=== PATIENT | female | born 1970 | race African-American/Black ===

== ENCOUNTER 2017-03-29 08:17 | Emergency (ER) | payer OTHER, MEDICAID ==
[~2017-03-29] VITALS: Ht 165.1 cm; Wt 132.0 kg
[~2017-03-29 08:17] MED LIST: ALBU18HF2 IH; AMLO10TA80 PO; LOVA40TA73 PO; TRAM50TA3 PO
[2017-03-29] MEDS ORDERED: SODIUM CHLORIDE 0.9% 1,000 ML IV ONE (08:29)
[2017-03-29 09:08] LABS: EOSINOPHILS % 4.2 % (0.0-5.0); HEMATOCRIT. 34.4 % (36.0-48.0); HEMOGLOBIN. 11.1 g/dL (12.0-16.0); LYMPHOCYTES % 16.1 % (20.0-50.0); MEAN CORPUSCULAR VOLUME 86.9 fL (81.0-99.0); MEAN PLATELET VOLUME 9.3 fl (7.4-10.4); MONOCYTES % 7.7 % (2.0-8.0); PLATELET 125 x1000/uL (130-400); RED BLOOD CELL COUNT 3.95 mill/uL (4.2-5.4); RED CELL DISTRIBUTION WIDTH 16.3 % (11.6-14.6)
[2017-03-29 09:16] LABS: PARTIAL THROMBOPLASTIN TIME 24.4 sec (23.4-31.0); PROTHROMBIN TIME 10.2 sec (9.4-11.6)
[2017-03-29 09:24] LABS: B-HCG QUANTITATIVE < 1 mIU/mL (<3); CARBON DIOXIDE 27 mEq/L (21-32); CHLORIDE 106 mEq/L (98-107)
[2017-03-29 11:29] LABS: CLARITY URINE CLEAR (CLEAR); COLOR URINE YELLOW (YELLOW); GLUCOSE URINE NEGATIVE (NEGATIVE); KETONES URINE NEGATIVE (NEGATIVE); LEUKOCYTE ESTERASE URINE NEGATIVE (NEGATIVE); NITRITE URINE NEGATIVE (NEGATIVE); OCCULT BLOOD URINE 2+ (NEGATIVE); PROTEIN URINE NEGATIVE (NEGATIVE); SPECIFIC GRAVITY URINE 1.011 (1.005-1.030); UROBILINOGEN URINE 0.2 E.U./dL (0.2-1.0)
[2017-03-29 12:04] LABS: *AMPHETAMINES SCREEN URINE NEGATIVE (NEGATIVE); *BARBITURATES SCREEN URINE NEGATIVE (NEGATIVE); *BENZODIAZEPINES SCREEN URINE NEGATIVE (NEGATIVE); CANNABINOID URINE SCREEN NEGATIVE (NEGATIVE); METHADONE URINE SCREEN NEGATIVE (NEGATIVE); OPIATES URINE SCREEN NEGATIVE (NEGATIVE); PHENCYCLIDINE URINE SCREEN NEGATIVE (NEGATIVE)
[2017-03-29 12:08] LABS: *COCAINE SCREEN URINE PRESUMTIVE POSITIVE (NEGATIVE)
[2017-03-29 13:24] VITALS: BP 129/81
== END 2017-03-29 13:25 | disposition home or self-care (01) ==
LOC: ER 08:40
DX: D25.9 Leiomyoma of uterus, unspecified (principal); L02.02 Furuncle of face; D64.9 Anemia, unspecified; F14.10 Cocaine abuse, uncomplicated; E87.8 Other disorders of electrolyte and fluid balance, not elsewhere classified
CPT/HCPCS: 36415; 76830; 76856; 80048; 80305; 81001; 84702; 85025; 85610; 85730; 86850; 86900; 86901; 96360; 96361; 99285; J7030

== ENCOUNTER 2018-08-24 06:50 | Emergency (ER) | payer MEDICAID, OTHER ==
[~2018-08-24] VITALS: Ht 175.3 cm; Wt 136.0 kg
[2018-08-24 06:57] VITALS: BP 137/70
== END 2018-08-24 11:35 | disposition left against medical advice (07) ==
LOC: ER 06:50
DX: M79.605 Pain in left leg (principal); M79.604 Pain in right leg; R06.02 Shortness of breath; Z53.21 Procedure and treatment not carried out due to patient leaving prior to being seen by health care provider

== ENCOUNTER 2018-09-30 20:01 | Emergency (ER) | payer OTHER ==
[~2018-09-30] VITALS: Ht 180.3 cm; Wt 135.0 kg
[2018-09-30 20:56] LABS: CLARITY URINE CLOUDY (CLEAR); COLOR URINE YELLOW (YELLOW); KETONES URINE NEGATIVE (NEGATIVE); LEUKOCYTE ESTERASE URINE NEGATIVE (NEGATIVE); NITRITE URINE NEGATIVE (NEGATIVE); OCCULT BLOOD URINE NEGATIVE (NEGATIVE); PROTEIN URINE NEGATIVE (NEGATIVE); SPECIFIC GRAVITY URINE 1.002 (1.005-1.030); UROBILINOGEN URINE 0.2 E.U./dL (0.2-1.0)
[2018-09-30 22:56] LABS: CHLORIDE 107 mEq/L (98-107)
[2018-09-30 23:00] LABS: BASOPHILS % 1.6 % (0.0-2.0); EOSINOPHILS % 3.7 % (0.0-5.0); HEMATOCRIT. 34.2 % (36.0-48.0); HEMOGLOBIN. 10.6 g/dL (12.0-16.0); LYMPHOCYTES % 20.6 % (20.0-50.0); MEAN CORPUSCULAR HEMOGLOBIN 26.1 pg (28.0-32.0); MEAN CORPUSCULAR VOLUME 84.2 fL (81.0-99.0); MEAN PLATELET VOLUME 11.6 fl (7.4-10.4); NEUTROPHILS % 67.1 % (40.0-76.0); PLATELET 151 x1000/uL (130-400); RED BLOOD CELL COUNT 4.07 mill/uL (4.2-5.4); RED CELL DISTRIBUTION WIDTH 16.8 % (11.6-14.6)
[2018-10-01 00:21] VITALS: BP 143/86
== END 2018-10-01 00:34 | disposition home or self-care (01) ==
LOC: ER 20:01
DX: D64.9 Anemia, unspecified (principal); E87.6 Hypokalemia; R07.89 Other chest pain; R06.2 Wheezing; E78.00 Pure hypercholesterolemia, unspecified; I10 Essential (primary) hypertension; J44.9 Chronic obstructive pulmonary disease, unspecified; E66.9 Obesity, unspecified; Z68.41 Body mass index [BMI] 40.0-44.9, adult; Z79.899 Other long term (current) drug therapy
CPT/HCPCS: 36415; 71045; 81025; 83880; 84484; 93005; 99284

== ENCOUNTER 2022-02-13 18:30 | Emergency (ER) | payer OTHER, MEDICAID ==
[~2022-02-13] VITALS: Ht 167.6 cm; Wt 120.0 kg
[2022-02-13 23:33] LABS: CHLORIDE 102 mEq/L (98-107)
[2022-02-13 23:36] LABS: HEMATOCRIT. 45.7 % (36.0-48.0); HEMOGLOBIN. 14.5 g/dL (12.0-16.0); LYMPHOCYTES % 17.1 % (20.0-50.0); MEAN CORPUSCULAR HEMOGLOBIN 27.5 pg (28.0-32.0); MEAN CORPUSCULAR VOLUME 86.4 fL (81.0-99.0); MEAN PLATELET VOLUME 12.3 fl (7.4-10.4); MONOCYTES % 5.7 % (2.0-8.0); NEUTROPHILS % 73.2 % (40.0-76.0); PLATELET 91 x1000/uL (130-400); RED BLOOD CELL COUNT 5.29 mill/uL (4.2-5.4); RED CELL DISTRIBUTION WIDTH 15.6 % (11.6-14.6)
[2022-02-13 23:45] LABS: ETHANOL BLOOD < 10 mg/dL
[2022-02-14 00:32] LABS: *AMPHETAMINES SCREEN URINE NEGATIVE (NEGATIVE); *BARBITURATES SCREEN URINE NEGATIVE (NEGATIVE); *BENZODIAZEPINES SCREEN URINE NEGATIVE (NEGATIVE); *COCAINE SCREEN URINE PRESUMTIVE POSITIVE (NEGATIVE); CANNABINOID URINE SCREEN NEGATIVE (NEGATIVE); METHADONE URINE SCREEN NEGATIVE (NEGATIVE); OPIATES URINE SCREEN NEGATIVE (NEGATIVE); PHENCYCLIDINE URINE SCREEN NEGATIVE (NEGATIVE)
[2022-02-14] MEDS ORDERED: HYDR-4001 MT (04:19)
[2022-02-14] MEDS ORDERED: FURO-151 MT (04:19)
[2022-02-14 04:40] VITALS: BP 136/76
== END 2022-02-14 04:50 | disposition home or self-care (01) ==
LOC: ER 18:30
DX: R60.0 Localized edema (principal); D64.9 Anemia, unspecified; J44.9 Chronic obstructive pulmonary disease, unspecified; E78.00 Pure hypercholesterolemia, unspecified; I10 Essential (primary) hypertension; F14.10 Cocaine abuse, uncomplicated; Z20.822 Contact with and (suspected) exposure to COVID-19
CPT/HCPCS: 36415; 71045; 80053; 80305; 80320; 83605; 83880; 84484; 85025; 85379; 87426; 93005; 99285; C9803; G0480